=== PATIENT | female | born 1975 | race Two or more races ===

== ENCOUNTER 2020-09-27 20:11 | Emergency (ER) | payer OTHER, MEDICAID ==
[~2020-09-27] VITALS: Ht 154.9 cm; Wt 71.2 kg
[2020-09-27 20:26] VITALS: BP 128/90
== END 2020-09-28 02:15 | disposition left against medical advice (07) ==
LOC: ER 20:11
DX: S61.211A Laceration without foreign body of left index finger without damage to nail, initial encounter (principal); Z53.21 Procedure and treatment not carried out due to patient leaving prior to being seen by health care provider; W26.8XXA Contact with other sharp object(s), not elsewhere classified, initial encounter; Y93.89 Activity, other specified; Y92.89 Other specified places as the place of occurrence of the external cause; Y99.8 Other external cause status